=== PATIENT | female | born 1995 | race Caucasian/White ===

== ENCOUNTER 2017-10-24 14:11 | Outpatient (REF) | payer MEDICAID, SELFPAY ==
[2017-10-24 22:45] LABS: Abs Immature Grans 0.01 k/cumm (0.0-0.09); Absolute Basophil Count 0.01 k/cumm (0.0-0.2); Absolute Eosinophil Count 0.11 k/cumm (0.0-0.7); Absolute Lymphocyte Count 1.93 k/cumm (1.2-3.4); Absolute Monocyte Count 0.72 k/cumm (0.11-0.7); Absolute Neutrophil Count 3.45 k/cumm (1.2-6.7); Basophils % 0.2; Eosinophils % 1.8; HCT 36.9 % (36.0-46.0); HGB 12.5 g/dL (12.0-15.5); Immature Grans % 0.2; Mean Corp. HGB Concentration 33.9 g/dL (32.0-36.0); Mean Corpuscular Hemoglobin 31.3 pg (27.0-33.0); Mean Corpuscular Volume 92.5 fL (80-95); Mean Platelet Volume 11.5 fL (8.0-11.0); Monocytes % 11.6; Neutrophils % 55.2; Platelet Count 289 x1000/uL (130-400); RBC 3.99 m/cumm (4.00-5.20); RBC Distribution Width 12.5 % (11.7-14.6); White Blood Cell Count 6.23 k/cumm (4.4-10.8)
[2017-10-24 23:11] LABS: ALT 24 U/L (12-78); AST 16 U/L (15-37); Albumin 3.9 g/dL (3.4-5.0); Alkaline Phosphatase 58 U/L (46-116); Bilirubin, Total 0.4 mg/dL (0.2-1.0); TSH 0.64 uIU/mL (0.358-3.74); Total Protein 6.8 g/dL (6.4-8.2)
[2017-10-26 13:22] LABS: Chlamydia Result Negative; GC Result Negative; Specimen Description URINE
[2017-10-26 22:08] LABS: C.trach, Misc, Amplified RNA Negative (Negative); N.gonorr, Misc, Amplified RNA Negative (Negative); SOURCE: THROAT
== END 2017-10-24 14:31 ==
LOC: NCHCN 14:11
PROVIDERS: PCP Internal Medicine; Visit Provider Registered Nurse
DX: E03.9 Hypothyroidism, unspecified (principal); F41.8 Other specified anxiety disorders; Z11.3 Encounter for screening for infections with a predominantly sexual mode of transmission
CPT/HCPCS: 80076; 87491; 87591; 84443; 85025

== ENCOUNTER 2018-01-08 12:08 | Outpatient (REF) | payer MEDICAID, SELFPAY ==
[2018-01-10 09:42] LABS: Hepatitis C Ab w Rflx HCV PCR Negative (NEGAT)
[2018-01-10 10:36] LABS: HBs Antibody, Quant <3.1 mIU/mL; Hepatitis B Surface Ab Negative
[2018-01-10 10:56] LABS: HIV-1/2 Ag & Ab Screen Negative (NEGAT)
[2018-01-10 12:39] LABS: Syphilis Serology (RPR) Negative (Negative)
[2018-01-10 14:57] LABS: Chlamydia Result Negative; GC Result Negative; Specimen Description URINE
[2018-01-10 21:08] LABS: C.trach, Misc, Amplified RNA Negative (Negative); N.gonorr, Misc, Amplified RNA Negative (Negative); SOURCE: THROAT
== END 2018-01-08 12:28 ==
LOC: NCHCN 12:08
PROVIDERS: PCP Internal Medicine; Visit Provider Registered Nurse
DX: Z11.3 Encounter for screening for infections with a predominantly sexual mode of transmission (principal); Z11.59 Encounter for screening for other viral diseases; Z11.4 Encounter for screening for human immunodeficiency virus [HIV]; Z30.431 Encounter for routine checking of intrauterine contraceptive device
CPT/HCPCS: 86706; 86803; 87389; 87491; 87591; 86592

== ENCOUNTER 2018-04-04 12:15 | Outpatient (REF) | payer MEDICAID, SELFPAY ==
[2018-04-06 10:36] LABS: Syphilis Serology (RPR) Negative (Negative)
[2018-04-06 10:56] LABS: HIV-1/2 Ag & Ab Screen Negative (NEGAT)
[2018-04-06 10:57] LABS: Hepatitis C Ab w Rflx HCV PCR Negative (NEGAT)
[2018-04-06 14:04] LABS: Chlamydia Result Negative; GC Result Negative; Specimen Description URINE
[2018-04-07 00:15] LABS: C.trach, Misc, Amplified RNA Negative (Negative); N.gonorr, Misc, Amplified RNA Negative (Negative); SOURCE: THROAT
== END 2018-04-04 12:35 ==
LOC: NCHCN 12:15
PROVIDERS: PCP Internal Medicine; Visit Provider Registered Nurse
DX: Z11.3 Encounter for screening for infections with a predominantly sexual mode of transmission (principal); Z11.4 Encounter for screening for human immunodeficiency virus [HIV]; Z11.59 Encounter for screening for other viral diseases
CPT/HCPCS: 86803; 87389; 87491; 87591; 86592

== ENCOUNTER 2018-05-04 09:53 | Outpatient (REF) | payer MEDICAID, SELFPAY ==
[2018-05-07 09:30] LABS: Hepatitis C Ab w Rflx HCV PCR Negative (NEGAT)
[2018-05-07 09:33] LABS: HIV-1/2 Ag & Ab Screen Negative (NEGAT)
[2018-05-07 12:24] LABS: Syphilis Serology (RPR) Negative (Negative)
[2018-05-07 14:25] LABS: Chlamydia Result Negative; GC Result Negative; Specimen Description URINE
== END 2018-05-04 10:13 ==
LOC: NCHCN 09:53
PROVIDERS: PCP Internal Medicine; Visit Provider Registered Nurse
DX: Z11.3 Encounter for screening for infections with a predominantly sexual mode of transmission (principal); Z11.4 Encounter for screening for human immunodeficiency virus [HIV]; Z11.59 Encounter for screening for other viral diseases
CPT/HCPCS: 86803; 87389; 87491; 87591; 86592

== ENCOUNTER 2018-12-25 22:51 | Outpatient (REF) | payer OTHER, SELFPAY ==
[2018-12-25 23:32] LABS: TSH 2.78 uIU/mL (0.36-3.74)
[2018-12-27 10:16] LABS: Syphilis Serology (RPR) Negative (Negative)
[2018-12-27 11:23] LABS: HIV-1/2 Ag & Ab Screen Negative (NEGAT)
[2018-12-27 11:30] LABS: Hepatitis C Ab w Rflx HCV PCR Negative (NEGAT)
[2018-12-27 15:28] LABS: Chlamydia Result Negative; GC Result Negative
[2018-12-27 21:59] LABS: C.trach, Misc, Amplified RNA Negative (Negative)
== END 2018-12-25 23:11 ==
LOC: NCHCN 22:51
PROVIDERS: PCP Internal Medicine; Visit Provider Nurse Practitioner Family
DX: E03.9 Hypothyroidism, unspecified (principal); Z11.3 Encounter for screening for infections with a predominantly sexual mode of transmission; Z11.4 Encounter for screening for human immunodeficiency virus [HIV]; Z11.59 Encounter for screening for other viral diseases
CPT/HCPCS: 86803; 87389; 87491; 87591; 84443; 86592

== ENCOUNTER 2019-04-02 12:23 | Outpatient (REF) | payer OTHER, SELFPAY ==
--- NOTE | 2019-04-02 10:30 | PAPFT_PTH ---
PATIENT: Shonna Hector LOC: [facility] U#:[id number] AGE/SX: 23/F ROOM: RE04/02/[address]: Danyell Cheema : 1995 BED: DIS: 04/02/2019 SPEC #: [id number] RECD: 04/03/19 12:52 STATUS: ESE REQ #: [id number] RUSLAN: 04/02/19 10:[address]: Danyell Cheema DEPT: [facility] Cytology RECD BY: Marj Vidal ENTERED: 04/03/19 12:53 SP TYPE: PAPFT OTHR DR: Jeff Burroughs Tissues: 1 - CX/ENDOCX FOR PAP SMEARS Procedures: PAP THIN PREP/[facility] Screening Comments: [id number] (CHLAMYDIA/GC)
[2019-04-04 16:41] LABS: Chlamydia Result Negative (Negative); GC Result Negative (Negative)
== END 2019-04-02 12:43 ==
LOC: NCHCN 12:23
PROVIDERS: PCP Internal Medicine; Visit Provider Registered Nurse
DX: Z12.4 Encounter for screening for malignant neoplasm of cervix (principal)
CPT/HCPCS: 87491; 87591; 88142

== ENCOUNTER 2019-09-20 20:19 | Outpatient (REF) | payer OTHER, SELFPAY ==
[2019-09-20 20:45] LABS: HCT 37.9 % (36.0-46.0); HGB 12.7 g/dL (11.2-15.7); MCHC 33.5 % (32.0-36.0); MCV 89.6 fL (80-95); MPV 11.2 fL (8.0-11.0); Platelet Count 305 10^3/uL (130-400); RBC 4.23 10^6/uL (3.93-5.22); RDW 12.2 % (11.7-14.6); RDW-SD 39.6 fL; WBC 6.03 10^3/uL (4.4-10.8)
[2019-09-20 21:41] LABS: ALT 24 U/L (14-59); AST 19 U/L (15-37); Albumin 3.9 g/dL (3.4-5.0); Alkaline Phosphatase 47 U/L (46-116); BUN 11 mg/dL (7-18); Bilirubin, Total 0.8 mg/dL (0.2-1.0); Calcium 8.6 mg/dL (8.5-10.1); Chloride 102 mmol/L (98-107); Glucose 81 mg/dL (74-106); Sodium 138 mmol/L (136-145); Total Protein 6.8 g/dL (6.4-8.2)
[2019-09-23 13:35] LABS: Chlamydia Result Negative (Negative); GC Result Negative (Negative)
[2019-09-25 01:26] LABS: C.trach, Misc, Amplified RNA Negative (Negative); N.gonorr, Misc, Amplified RNA Negative (Negative); SOURCE: THROAT
== END 2019-09-20 20:39 ==
LOC: NCHCN 20:19
PROVIDERS: PCP Internal Medicine; Visit Provider Registered Nurse
DX: F39 Unspecified mood [affective] disorder (principal); Z11.3 Encounter for screening for infections with a predominantly sexual mode of transmission
CPT/HCPCS: 80053; 85027; 87491; 87591

== ENCOUNTER 2019-10-04 15:09 | Outpatient (REF) | payer OTHER, SELFPAY ==
[2019-10-07 10:28] LABS: HIV-1/2 Ag & Ab Screen Negative (Negative)
[2019-10-07 12:29] LABS: Syphilis Serology (RPR) Negative (Negative)
== END 2019-10-04 15:29 ==
LOC: NCHCN 15:09
PROVIDERS: PCP Registered Nurse; Visit Provider Registered Nurse
DX: Z11.3 Encounter for screening for infections with a predominantly sexual mode of transmission (principal); Z11.4 Encounter for screening for human immunodeficiency virus [HIV]
CPT/HCPCS: 87389; 86592

== ENCOUNTER 2019-12-11 22:46 | Outpatient (REF) | payer OTHER, SELFPAY ==
[2019-12-14 23:57] LABS: Patient Race White; SARS-CoV-2 RNA Undetected (Undetected); SARS-CoV-2 Specimen Source Nasal
== END 2019-12-11 23:06 ==
LOC: NCHCN 22:46
PROVIDERS: PCP Registered Nurse; Visit Provider Registered Nurse
DX: R50.9 Fever, unspecified (principal)
CPT/HCPCS: U0003

== ENCOUNTER 2020-01-24 19:49 | Outpatient (REF) | payer OTHER, SELFPAY ==
[2020-01-24 20:35] LABS: Abs Immature Grans 0.01 10^3/uL (0.0-0.06); HCT 39.6 % (36.0-46.0); HGB 13.1 g/dL (11.2-15.7); MCH 30.3 pg (27.0-33.0); MCHC 33.1 % (32.0-36.0); MCV 91.7 fL (80-95); MPV 11.1 fL (8.0-11.0); Nucleated RBC 0 %; Platelet Count 193 10^3/uL (130-400); RBC 4.32 10^6/uL (3.93-5.22); RDW 11.9 % (11.7-14.6); WBC 5.08 10^3/uL (4.4-10.8)
[2020-01-24 20:57] LABS: ALT 31 U/L (14-59); AST 26 U/L (15-37); Albumin 3.6 g/dL (3.4-5.0); Alkaline Phosphatase 56 U/L (46-116); Anion Gap 6.3 mmol/L (3-11); BUN 5 mg/dL (7-18); Bilirubin, Total 0.4 mg/dL (0.2-1.0); CO2 27.7 mmol/L (21.0-32.0); CREATININE 0.68 mg/dL (0.55-1.02); Calcium 8.3 mg/dL (8.5-10.1); Chloride 104 mmol/L (98-107); Glucose 89 mg/dL (74-106); Potassium 3.5 mmol/L (3.5-5.1); Sodium 138 mmol/L (136-145); TSH 1.02 uIU/mL (0.36-3.74); Total Protein 6.7 g/dL (6.4-8.2)
[2020-01-24 21:11] LABS: Absolute Lymphocyte Count 1.47 10^3/uL (1.2-3.4); Absolute Monocyte Count 0.51 10^3/uL (0.1-0.8); Atypical Lymphocytes % 5; Diff Comment Manual Differential
== END 2020-01-24 20:09 ==
LOC: NCHCN 19:49
PROVIDERS: PCP Registered Nurse; Visit Provider Internal Medicine
DX: E03.9 Hypothyroidism, unspecified (principal); R19.7 Diarrhea, unspecified
CPT/HCPCS: 80053; 87505; 84443; 85025; 87177

== ENCOUNTER 2020-07-24 15:14 | Outpatient (REF) | payer OTHER, SELFPAY ==
[2020-07-27 10:14] LABS: HIV-1/2 Ag & Ab Screen Negative (Negative)
[2020-07-27 10:33] LABS: Parathyroid Hormone,Intact 41 pg/mL (19-88)
[2020-07-27 14:58] LABS: Chlamydia Result Negative (Negative); GC Result Negative (Negative)
== END 2020-07-24 15:15 | disposition home or self-care (01) ==
LOC: NCHCN 15:14
PROVIDERS: PCP Registered Nurse; Visit Provider Registered Nurse
DX: E83.51 Hypocalcemia (principal); Z11.3 Encounter for screening for infections with a predominantly sexual mode of transmission; Z11.4 Encounter for screening for human immunodeficiency virus [HIV]
CPT/HCPCS: 87389; 87491; 87591; 82310; 83970

== ENCOUNTER 2021-05-19 17:14 | Outpatient (REF) | payer SELFPAY ==
[2021-05-19 21:50] LABS: HCT 40.7 % (36.0-46.0); HGB 13.3 g/dL (11.2-15.7); MCH 29.9 pg (27.0-33.0); MCHC 32.7 % (32.0-36.0); MCV 91.5 fL (80-95); MPV 10.8 fL (8.0-11.0); Platelet Count 374 10^3/uL (130-400); RBC 4.45 10^6/uL (3.93-5.22); RDW 11.9 % (11.7-14.6); RDW-SD 39.8 fL; WBC 6.39 10^3/uL (4.4-10.8)
[2021-05-19 22:12] LABS: ALT 23 U/L (14-59); AST 15 U/L (15-37); Alkaline Phosphatase 59 U/L (46-116); Anion Gap 6.8 mmol/L (3-11); BUN 16 mg/dL (7-18); Bilirubin, Total 0.5 mg/dL (0.2-1.0); CO2 29.2 mmol/L (21.0-32.0); CREATININE 0.8 mg/dL (0.55-1.02); Calcium 8.8 mg/dL (8.5-10.1); Chloride 104 mmol/L (98-107); Glucose 80 mg/dL (74-106); Potassium 3.8 mmol/L (3.5-5.1); Sodium 140 mmol/L (136-145); TSH 0.93 uIU/mL (0.36-3.74); Total Protein 7.1 g/dL (6.4-8.2)
== END 2021-05-19 17:15 | disposition home or self-care (01) ==
LOC: NCHCN 17:14
PROVIDERS: PCP Registered Nurse; Visit Provider Registered Nurse
DX: R53.83 Other fatigue (principal)
CPT/HCPCS: 80053; 85027; 84443

== ENCOUNTER 2021-09-09 10:33 | Outpatient (REF) | payer MEDICAID, SELFPAY ==
[2021-09-09 14:51] LABS: Abs Immature Grans 0.01 10^3/uL (0.0-0.06); Absolute Basophil Count 0.02 10^3/uL (0.0-0.2); Absolute Eosinophil Count 0.23 10^3/uL (0.0-0.7); Absolute Lymphocyte Count 2.08 10^3/uL (1.2-3.4); Absolute Monocyte Count 0.94 10^3/uL (0.1-0.8); Absolute Neutrophil Count 3.39 10^3/uL (1.2-6.7); Basophils % 0.3; Eosinophils % 3.4; HCT 38.9 % (36.0-46.0); HGB 12.9 g/dL (11.2-15.7); Immature Grans % 0.1; Lymphocytes % 31.2; MCHC 33.2 % (32.0-36.0); MCV 91 fL (80-95); Monocytes % 14.1; Neutrophils % 50.9; Platelet Count 296 10^3/uL (130-400); RDW 11.9 % (11.7-14.6); RDW-SD 39.2 fL; WBC 6.67 10^3/uL (4.4-10.8)
[2021-09-09 15:10] LABS: TSH 2.07 uIU/mL (0.36-3.74)
== END 2021-09-09 10:34 | disposition home or self-care (01) ==
LOC: NCHCN 10:33
PROVIDERS: PCP Registered Nurse; Visit Provider Registered Nurse
DX: R53.83 Other fatigue (principal)
CPT/HCPCS: 84443; 85025

== ENCOUNTER 2021-09-16 13:03 | Outpatient (REF) | payer MEDICAID, SELFPAY ==
[2021-09-17 13:46] LABS: COVID-19 RT-PCR UVMMC Result Negative (Negative)
== END 2021-09-16 13:04 | disposition home or self-care (01) ==
LOC: NCHCN 13:03
PROVIDERS: PCP Registered Nurse; Visit Provider Registered Nurse
DX: Z20.822 Contact with and (suspected) exposure to COVID-19 (principal); J06.9 Acute upper respiratory infection, unspecified
CPT/HCPCS: U0003

== ENCOUNTER 2021-10-28 16:26 | Outpatient (REF) | payer MEDICAID, SELFPAY ==
[2021-10-28 21:51] LABS: Vitamin B12 399 pg/mL (193-986)
[2021-10-28 23:34] LABS: Vitamin D 25 Total 21.5 ng/mL (30-100)
== END 2021-10-28 16:27 | disposition home or self-care (01) ==
LOC: NCHCN 16:26
PROVIDERS: PCP Registered Nurse; Visit Provider Registered Nurse
DX: R53.83 Other fatigue (principal); F41.8 Other specified anxiety disorders; F39 Unspecified mood [affective] disorder
CPT/HCPCS: 82306; 82607

== ENCOUNTER 2022-02-08 17:46 | Outpatient (REF) | payer MEDICAID, SELFPAY ==
--- NOTE | 2022-02-08 17:00 | PAPFT_PTH ---
PATIENT: Shonna Hector LOC: [facility]#:[id number] AGE/SX: 26/F ROOM: RE02/08/[address]: Karen Dow : 1995 BED: DIS: 02/08/2022 SPEC #: [id number] RECD: 02/09/22 13:01 STATUS: ESE REXena #: [id number] RUSLAN: 02/08/22 17:[address]: Karen Dow DEPT: [facility] Cytology RECD BY: Marj Vidal ENTERED: 02/09/22 13:02 SP TYPE: PAPFT OTHR DR: Danyell Cheema Tissues: 1 - CX/ENDOCX FOR PAP SMEARS Procedures: PAP THIN PREP/[facility] Screening Comments: [id number] (CHLAMYDIA/GC)
[2022-02-10 15:05] LABS: Chlamydia Result Negative (Negative); GC Result Negative (Negative)
== END 2022-02-08 17:47 | disposition home or self-care (01) ==
LOC: NCHCN 17:46
PROVIDERS: PCP Registered Nurse; Visit Provider Family Medicine
DX: N89.8 Other specified noninflammatory disorders of vagina (principal); Z11.3 Encounter for screening for infections with a predominantly sexual mode of transmission; Z12.4 Encounter for screening for malignant neoplasm of cervix
CPT/HCPCS: 87491; 87591; 88142; 87480; 87510; 87660

== ENCOUNTER 2022-12-30 17:52 | Outpatient (REF) | payer BC, SELFPAY ==
[2022-12-30 15:40] LABS: TSH 2.71 uIU/mL (0.36-3.74)
--- OUTSIDE RECORDS SUMMARY | 2022-12-30 17:54 | XMS_ITS | CCD ---
Author Name Unknown Address [address] [place] [address] [phone] Organization Unknown Address [address] [place] [address] [phone] Care Team Providers Care Dietitian Research Name Role Phone LOC STEEN Attending Physician [phone] Vital Signs Unknown or Not Available. Allergies Allergy Code Allergy Type Reaction Status LACTOSE 6211 Food allergy ABDOMINAL PAIN Active Procedures Unknown or Not Available. History of Immunizations Unknown or Not Available. Problems Unknown or Not Available. Results Unknown or Not Available. Active Medications Medication Code Dose Units Frequency Route Modificatio n Start Date/Time Citalopram Hydrobromide 20MG Oral Tablet 415285 40 MILLIGRAMS DAILY ORAL 20:25 Prescription Detail TAKE 40 MILLIGRAMS ORAL DAILY Levothyroxine Sodium 88MCG Oral Tablet 875926 88 MICROGRAM DAILY ORAL 09/10/19 19 20:25 Prescription Detail TAKE 88 MICROGRAM ORAL DAILY ProAir HFA 0.09MG/1Actuat ion Inhalation Suspension 977238 1 PUFF NEEDED INHALATION 09/10/19 20:25 Prescription Detail 1 PUFF INHALATION NEEDED Medications Administered During Visit Unknown or Not Available. Encounters Encounter Diagnosis Diagnosis Code Start Date Follow-up consultation [id number] Social History Smoking Status Code Start Date End Date Never smoker [id number] Patient Decision Aids Unknown or Not Available. Discharge Instructions You were admitted to [facility] on 03/31/2022 14:47 with a principal diagnosis of Person consulting for explanation of examination or test findings You were discharged from [facility] on 03/31/2022 14:47 Should you have any questions prior to discharge, please contact a member of your healthcare team. If you have left the hospital and have any questions, please contact your primary care physician. Chief Complaint and Reason For Visit Unknown or Not Available. Function Status Unknown or Not Available. Plan of Care Unknown or Not Available. Referral/Transition of Care Unknown or Not Available.
--- OUTSIDE RECORDS SUMMARY | 2022-12-30 17:54 | XMS_ITS | CCD ---
Author Name Unknown Address [address] [place] [address] [phone] Organization Unknown Address [address] [place] [address] [phone] Care Team Providers Care Pig Breeder Name Role Phone ALOK MCCALLUM Attending Physician [phone] ALOK MCCALLUM Rounding (Secondary) P hysician [phone] Vital Signs Unknown or Not Available. Allergies Allergy Code Allergy Type Reaction Status LACTOSE 6211 Food allergy ABDOMINAL PAIN Active Procedures Unknown or Not Available. History of Immunizations Unknown or Not Available. Problems Unknown or Not Available. Results Unknown or Not Available. Active Medications Medication Code Dose Units Frequency Route Modificatio n Start Date/Time Citalopram Hydrobromide 20MG Oral Tablet 479816 40 MILLIGRAMS DAILY ORAL 9 20:25 Prescription Detail TAKE 40 MILLIGRAMS ORAL DAILY Levothyroxine Sodium 88MCG Oral Tablet 237122 88 MICROGRAM DAILY ORAL 09/10/19 19 20:25 Prescription Detail TAKE 88 MICROGRAM ORAL DAILY ProAir HFA 0.09MG/1Actuat ion Inhalation Suspension 974936 1 PUFF NEEDED INHALATION 09/10/19 19 20:25 Prescription Detail 1 PUFF INHALATION NEEDED Medications Administered During Visit Unknown or Not Available. Encounters Encounter Diagnosis Diagnosis Code Start Date Obstructive sleep apnea (adult) (pediatric) G473 3 01/14/2022 Social History Smoking Status Code Start Date End Date Never smoker [id number] Patient Decision Aids Unknown or Not Available. Discharge Instructions You were admitted to [facility] on 01/14/2022 20:30 with a principal diagnosis of Obstructive sleep apnea (adult) (pediatric) You were discharged from [facility] on 01/15/2022 06:12 Should you have any questions prior to [...]
--- OUTSIDE RECORDS SUMMARY | 2022-12-30 17:54 | XMS_ITS | Continuity of Care Document ---
Author Name Unknown Organization [facility] Address [address] [place] [address] Care Team Providers Care Vulnerability Researcher Name Role Phone Karen Dow Primary Care Physician Encounter [facility] Date(s): 02/23/22 - 04/28/22 [facility] [address] [place] [address] Encounter Diagnosis Pain in thoracic spine(Final) - Other low back pain(Final) - Discharge Disposition: Home or Self Care Attending Physician: Karen Dow MD Referring Physician: Karen Dow MD Assessment and Plan Future Appointments Social History Social History Type Response Sex Female Physical therapy Progress note * Francoise Rodriguez: PERFORM, MODIFY, MODIFY, MODIFY, MODIFY, MODIFY, MODIFY, MODIFY, MODIFY, MODIFY, MODIFY, MODIFY, MODIFY, MODIFY, MODIFY Event Display: Physical Therapy Progress Note Authored Date: [id number] *Visit Type:?Discharge summary *Referring??Diagnosis: M54.9 Back Pain *Therapy Diagnosis: Back pain and muscle weakness *Subjective: Patient reports no pain in her back over the last 10 days, improved back mobility and is not wakingup with pain after work. Patient reports that she is more conscious of her back position and is maintaining her back in a more straight alignment more frequently. Patient is able to now sit in a firmchair for more than 30 minutes and able to sit in a cushioned chair for as long as she wants. Patient notices when her body mechanics are improved and she is focused on her form that she does not have issues with carrying and lifting related tasks. 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 ??Patient Case History: Patient presents with low back pain that was injured most recently 2 months ago with occasional flare ups. Patient reports history of low back pain years ago, however in December of 2021 she was unable to walk and stand up straight for 4 days with symptoms of tingling going up her spine and swelling that was warm to touch along her spine. Patient reports fear of making her symptoms worse and unsure if she is going to cause another flare up. Increased stiffness is present in the morning. 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 Patient is able to lift up to 50lbs with most difficulty lifting from floor to waist and is unable to lift any weight when she is flared up. Pain: ?0/10 Lumbar Spine Mobility: Normal joint mobility of all lumbar spinal segments into extension, flexion and rotation. Mild muscle tension bilaterally throughout lower thoracic paraspinals. Lumbar Spine AROM Screen: ROM: Hip PROM: 105 degrees of hip flexion Hip flexor flexibility: 10 degrees bilaterally, tightness of right hip Inclinometer Tape Measure Flexion ??4 inches from floor Extension ??40 degrees, pinch Inclinometer Tape Measure Right Left Right Left Rotation ??Normal ??Normal Side Bending ??2 inches past knee ??2 inches past knee Core/Abdominal Strength: 5/5 Lumbar Spine Special Tests: Test Right Left 90-90 Test Degrees Degrees Femoral Nerve Traction Test Lasegue???s Test Pelvic Shear Test Slump Test ??Negative ??Negative Straight Leg Raise Degrees 78 Degrees 76 Jose Test Trendelenberg Test Myotomes: Hip flexion: 5/5 Knee extension/flexion: 5/5 Hip abduction/adduction: 5/5 *Patient Education: Patient educated on objective measurements and improvements made in therapy, and final HEP to continue with the progression. *Physical Therapy Assessment: Patient has participated in skilled physical therapy services with a focus on progressive strengthening of the core and LE with various lifting techniques and functional lumbar and hip mobility. Patient demonstrates improved lumbar flexion and rotation mobility, full SLR for with no remaining nervetension, increased core engagement, no back or hip pain and improved body mechanics for all lifting from floor to waist, carrying and lifting at waist height. 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 Patient has met all goals for physical therapy and presents with no more back pain over the last 10 days. Patient is discharged from physical therapy at this time. *Rehab Potential: Excellent?to reach the established goals *Functional Outcome Measure: FOM: Modified Oswestry Disability Index ? Score: 4% ? Comments: Minimal disability *Short Term Goals: 1. Patient will achieve hip flexion/core strength increase to 5/5 MMT by 03/15/2022 to be able to sit without pain for 1-2 hours. MET *Skilled Nursing Goals: ??1. Patient will be independent with final HEP to continue with progression for return to ADL's by03/29/2022. MET 2. Patient will perform floor to waist lift with correct posture with no lumbar flexion >50 lbs and no increase in chief complaint by 03/29/2022. MET 3. Patient will perform carry and walk with 30lbs for 20 feet distance with no increase in pain more than 2/10 VAS by 03/29/2022. MET 4. Patient will demonstrate SLR >70 degrees bilaterally as demonstrated by reduced lumbar nerve tension to improve ability to lift leg to don pants by 03/29/2022. MET *Patient Goals: -??To be able to lift, carry, grab 50lbs without fear of increased chief complaint. To get out of bed and chair without increased stiffness. To be able to sit for more than 30 minutes without the need to move out of the position. MET - To shovel snow without an increase in back pain MET *Discharge Plan:??Discharge patient from skilled physical. *Procedure Documentation: CPT 73488: Manual Therapy:?27? minutes Manual therapy to decrease tissue tension, decrease pain, decrease edema, promote healthy joint mobility and improve range of motion for functional ADL???s such as: Turning in bed, lifting animal feed, standing from chair, lifting from the floor Treatment techniques utilized today included: -Joint mobilization grade ll-lll along lumbar spine medial and lateral -Myofascial release along hamstrings, ITB and lateral hip musculature CPT 83520: Therapeutic Exercise:?15? minutes Therapeutic exercise to promote improved joint stability, strength, endurance, and range of motion for functional ADL???s such as: lifting cow feed from the ground, lifting groceries, reaching to move feed into the animal stalls, picking items off the ground Specific education/training provided: Treatment techniques utilized today included: -LTR x20 -Hip ER LTR x20 -Sciatic nerve slider supine x20 each HEP: -Hip hinging standing holding onto table 2x10 with dowel -Floor to waist lift with stool and with no weight 2x10 (cues for hip hinging, neutral spine and glut engagement) -SKTC bilaterally with small SB on table supine 1x10 bilaterally -LTR -Sit to stand (rtb) with ER resistance -Sciatic nerve slider (knee extension in supine) *Total Time: 42 minutes *Time In: 1:18 PM *Time Out: 2:00 PM Electronically Signed on 04/29/22 07:07 AM Francoise Rodriguez Reviewed by: Zena Redman * Francoise Rodriguez: PERFORM, MODIFY, MODIFY, MODIFY Event Display: Physical Therapy Progress Note Authored Date: *Visit Type:?Daily visit *Referring??Diagnosis: M54.9 Back Pain *Therapy Diagnosis: Back pain and muscle weakness *Subjective: Patient reports no pain in her back all week except some discomfort getting out of her truck right before therapy and inability to lunge to grab buckets out of her sink at home to properly lift it without her back arching. ??Patient Case History: Patient presents with low back pain that was injured most recently 2 months ago with occasional flare ups. Patient reports history of low back pain years ago, however in December of 2021 she was unable to walk and stand up straight for 4 days with symptoms of tingling going up her spine and swelling that was warm to touch along her spine. Patient reports fear of making her symptoms worse and unsure if she is going to cause another flare up. Increased stiffness is present in the morning. 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 Patient is able to lift up to 50lbs with most difficulty lifting from floor to waist and is unable to lift any weight when she is flared up. Pain: ?03/01 *Patient Education: Patient educated to continue to practice lumbar stretches, proper lifting form and maintaining current improvements. *Physical Therapy Assessment: Patient demonstrates good tolerance of moderate resistance lifting floor to waist height, with no increase in low back pain, however continues to demonstrate the need for cues and visual demonstration to correct spinal alignment. Progressed lifting techniques to simulate shoveling with use of long lever arm with 5lbs of weight on the end and cues to pivoting on her back leg. Patient improved spinal alignment after cue to maintain her visual gaze forward ahead of her without looking towards the ground. Improved lumbar spinal mobility palpated this session, however increased restrictions were noted along the lower thoracic spine that were improved post treatment with no remaining pain. Patient would continue to benefit from skilled physical therapy services to address remaining functional limitations as mentioned above to improve return to PLOF. *Short Term Goals: 1. Patient will achieve hip flexion/core strength increase to 5/5 MMT by 03/15/2022 to be able to sit without pain for 1-2 hours. MET *Skilled Nursing Goals: ??1. Patient will be independent with final HEP to continue with progression for return to ADL's by03/29/2022. MET 2. Patient will perform floor to waist lift with correct posture with no lumbar flexion >50 lbs and no increase in chief complaint by 03/29/2022. MET 3. Patient will perform carry and walk with 30lbs for 20 feet distance with no increase in pain more than 2/10 VAS by 03/29/2022. MET 4. Patient will demonstrate SLR >70 degrees bilaterally as demonstrated by reduced lumbar nerve tension to improve ability to lift leg to don pants by 03/29/2022. PROGRESSING *Patient Goals: -??To be able to lift, carry, grab 50lbs without fear of increased chief complaint. To get out of bed and chair without increased stiffness. To be able to sit for more than 30 minutes without the need to move out of the position. MET - To shovel snow without an increase in back pain PROGRESSING *Plan:??Manual techniques to address remaining hypomobility and muscle tension and update final HEP. *Procedure Documentation: CPT 34580: Manual Therapy:?15? minutes Manual therapy to decrease tissue tension, decrease pain, decrease edema, promote healthy joint mobility and improve range of motion for functional ADL???s such as: Turning in bed, lifting animal feed, standing from chair, lifting from the floor Treatment techniques utilized today included: -Joint mobilization grade ll-lll along bilateral pelvis into hip rotation with side bent position, thoracic vertebral medial glide T9-T12 -Myofascial release along bilateral lumbar/thoracic paraspinal musculature at T9-T12 CPT 26387: Therapeutic Activities - Direct 1:1 :?20? minutes Therapeutic activities to improve functional performance of ADL specific activities such as: lifting cow feed from the ground, lifting groceries, reaching to move feed into the animal stalls, pickingitems off the ground Treatment techniques utilized today included: -Floor to waist lift (handle height) 5 lbs x10 to simulate shoveling (long level arm with use of ankle weight and cane) -Deadlift blk tb and 18lbs KB 2x10 each -Waist height lateral transfer, no weight, pivot technique and grabbing from a lower height New HEP: -Hip hinging standing holding onto table 2x10 with dowel -Floor to waist lift with stool and with no weight 2x10 (cues for hip hinging, neutral spine and glut engagement) -SKTC bilaterally with small SB on table supine 1x10 bilaterally -LTR -Sit to stand (rtb) with ER resistance *Total Time: 35 minutes *Time In: 10:10 AM *Time Out: 10:45 AM Electronically Signed on 04/26/22 11:12 AM Francoise Rodriguez * Francoise Rodriguez: PERFORM, MODIFY, MODIFY, MODIFY, MODIFY, MODIFY, MODIFY, MODIFY, MODIFY, MODIFY, MODIFY, MODIFY, MODIFY, MODIFY, MODIFY, MODIFY, MODIFY, MODIFY, MODIFY, MODIFY, MODIFY, MODIFY, MODIFY Event Display: Physical Therapy Progress Note Authored Date: [id number] *Visit Type:?Progress note (Visit count: 13) *Referring??Diagnosis: M54.9 Back Pain *Therapy Diagnosis: Back pain and muscle weakness *Subjective: Patient reports less tightening sensation in the left hip. 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 Patient has been more consistent with her HEP and has noticed just stiffness. Patient reports that she has noticed improved mobility and reduced pain and is not waking up with pain after work. Patient reportsthat she is more conscious of her back position and is maintaining her back in a more straight alignment more frequently. Patient is able to now sit in a firm chair for more than 30 minutes and has less issues with carrying and lifting related tasks. Patient reports no current back pain at all and overall she has experienced significant improvements with addition of lifting techniques with the only issue being lifting waist to head height and fear of shoveling. ??Patient Case History: Patient presents with low back pain that was injured most recently 2 months ago with occasional flare ups. Patient reports history of low back pain years ago, however in December of 2021 she was unable to walk and stand up straight for 4 days with symptoms of tingling going up her spine and swelling that was warm to touch along her spine. Patient reports fear of making her symptoms worse and unsure if she is going to cause another flare up. Increased stiffness is present in the morning. 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 Patient is able to lift up to 50lbs with most difficulty lifting from floor to waist and is unable to lift any weight when she is flared up. Pain: Location: ??Low back central of spine (and off towards the left) Nature: ??Intermittent Behavior: ??Pressure, aching (sometimes sharp) Severity: ??0/10-2/10 Lumbar Spine Mobility: Normal joint mobility of all lumbar spinal segments into extension, flexion and rotation. Mild muscle tension bilaterally throughout lower thoracic paraspinals. Lumbar Spine AROM Screen: ROM: Hip PROM: 105 degrees of hip flexion Hip flexor flexibility: 10 degrees bilaterally, tightness of right hip Inclinometer Tape Measure Flexion ??4 inches from floor Extension ??40 degrees, pinch Inclinometer Tape Measure Right Left Right Left Rotation ??Normal ??Normal Side Bending ??2 inches past knee ??2 inches past knee Core/Abdominal Strength: 5/5 Lumbar Spine Special Tests: Test Right Left 90-90 Test Degrees Degrees Femoral Nerve Traction Test Lasegue???s Test Pelvic Shear Test Slump Test ??Negative ??Negative Straight Leg Raise Degrees 65 Degrees 64 Jose Test Trendelenberg Test Myotomes: Hip flexion: 5/5 Knee extension/flexion: 5/5 Hip abduction/adduction: 5/5 *Patient Education: Patient educated on objective measurements and improvements made in therapy, remaining deficits andupdated HEP. *Physical Therapy Assessment: Patient has participated in skilled physical therapy services over the past 13 visits with a focus on progressive strengthening of the core and LE with various lifting techniques and functional lumbar and hip mobility. Patient demonstrates improved lumbar flexion and rotation mobility, equal and improved SLR for hamstring flexibility, increased core engagement, no back or hip pain and improved body mechanics for all lifting from floor to waist, carrying and lifting at waist height. Patient is able to complete lifting from floor to waist and waist to shoulder height with cues for positioning without increased pain, and no stiffness getting into/out of bed or a chair. Patient continues to be f earful of trying to shovel snow and would benefit from further training in this area. Patient wouldcontinue to benefit from skilled physical therapy services to address remaining functional limitations as mentioned above to improve return to PLOF. *Rehab Potential: Excellent?to reach the established goals *Functional Outcome Measure: FOM: Modified Oswestry Disability Index ? Score: 8% ? Comments: Minimal disability *Short Term Goals: 1. Patient will achieve hip flexion/core strength increase to 5/5 MMT by 03/15/2022 to be able to sit without pain for 1-2 hours. MET *Skilled Nursing Goals: ??1. Patient will be independent with final HEP to continue with progression for return to ADL's by03/29/2022. MET 2. Patient will perform floor to waist lift with correct posture with no lumbar flexion >50 lbs and no increase in chief complaint by 03/29/2022. MET 3. Patient will perform carry and walk with 30lbs for 20 feet distance with no increase in pain more than 2/10 VAS by 03/29/2022. MET 4. Patient will demonstrate SLR >70 degrees bilaterally as demonstrated by reduced lumbar nerve tension to improve ability to lift leg to don pants by 03/29/2022. PROGRESSING *Patient Goals: -??To be able to lift, carry, grab 50lbs without fear of increased chief complaint. To get out of bed and chair without increased stiffness. To be able to sit for more than 30 minutes without the need to move out of the position. MET - To shovel snow without an increase in back pain PROGRESSING *Frequency of Treatment: 2x/week *Intensity of Treatment (minutes):??45 minutes *Duration of Treatment (days/weeks):??2x/week for 1 week *Planned Treatment Interventions: ??X CPT 31781: Therapeutic Exercise CPT 70312: Iontophoresis ??X CPT 20536: Therapeutic Activity CPT 63030: Electrical Stimulation (TENS/probe) ??X CPT 00675: Manual Therapy CPT G0283: Electrical Stimulation (unattended) ??X CPT 92035: Gait Training CPT 05997: Biofeedback ??X CPT 16166: Neuromuscular Re-education CPT 75579: Initial Orthotic Fit/Train ??X CPT 28167: Self-Care/Home Management CPT 53461: Initial Prosthetic Train CPT 64496: Ultrasound *Discharge Plan: Upon achieving goals or maximal benefit of therapy services.? Progress next session with simulated shoveling lifting mechanics. *Procedure Documentation: CPT 36683: Manual Therapy:?15? minutes Manual therapy to decrease tissue tension, decrease pain, decrease edema, promote healthy joint mobility and improve range of motion for functional ADL???s such as: Turning in bed, lifting animal feed, standing from chair, lifting from the floor Treatment techniques utilized today included: -Joint mobilization grade ll-lll along bilateral pelvis into hip rotation with side bent position -Myofascial release along bilateral lumbar/thoracic paraspinal musculature at T10-L2 CPT 59094: Therapeutic Activities - Direct 1:1 :?20? minutes Therapeutic activities to improve functional performance of ADL specific activities such as: lifting cow feed from the ground, lifting groceries, reaching to move feed into the animal stalls, pickingitems off the ground Treatment techniques utilized today included: -Floor to waist lift (handle height) 50lbs x5 -Deadlift 50lbs x3 -Waist to shoulder height lift (8-35lbs) with cues for lunge position and posterior weight shift -Lunge/golfers squat lift (5#) x10 -Sit to stand (rtb) with ER resistance 1x10 New HEP: -Hip hinging standing holding onto table 2x10 with dowel -Floor to waist lift with stool and with no weight 2x10 (cues for hip hinging, neutral spine and glut engagement) -SKTC bilaterally with small SB on table supine 1x10 bilaterally -LTR -Sit to stand (rtb) with ER resistance *Total Time: 35 minutes *Time In: 10:10 AM *Time Out: 10:45 AM Electronically Signed on 04/22/22 11:59 AM Francoise Rodriguez Reviewed by: Zena Redman Patient Care team information Care Team Personnel Name: Karen Dow MD Position: No Access Member Role: Primary Care Physician Care Team Related Persons Name: ERIKA MCKEON Address: Home
--- OUTSIDE RECORDS SUMMARY | 2022-12-30 17:54 | XMS_ITS | CCD ---
Author Name Unknown Address [address] [place] [address] [id number] Organization Unknown Address [address] [place] [address] [id number] Care Team Providers Care Solid Propellant Processor Name Role Phone LOC STEEN Attending Physician [phone] LOC STEEN Rounding (Secondary) Physician [phone] Vital Signs Unknown or Not Available. Allergies Allergy Code Allergy Type Reaction Status LACTOSE 6211 Food allergy ABDOMINAL PAIN Active Procedures Unknown or Not Available. History of Immunizations Unknown or Not Available. Problems Unknown or Not Available. Results Unknown or Not Available. Active Medications Medication Code Dose Units Frequency Route Modificatio n Start Date/Time Citalopram Hydrobromide 20MG Oral Tablet 056397 40 MILLIGRAMS DAILY ORAL 9 20:25 Prescription Detail TAKE 40 MILLIGRAMS ORAL DAILY Levothyroxine Sodium 88MCG Oral Tablet 368447 88 MICROGRAM DAILY ORAL 09/10/19 19 20:25 Prescription Detail TAKE 88 MICROGRAM ORAL DAILY ProAir HFA 0.09MG/1Actuat ion Inhalation Suspension 568951 1 PUFF NEEDED INHALATION 09/10/19 19 20:25 Prescription Detail 1 PUFF INHALATION NEEDED Medications Administered During Visit Unknown or Not Available. Encounters Encounter Diagnosis Diagnosis Code Start Date Snoring [id number] 11/03/2021 Social History Smoking Status Code Start Date End Date Never smoker [id number] Patient Decision Aids Unknown or Not Available. Discharge Instructions You were admitted to [facility] on 11/03/2021 15:21 with a principal diagnosis of Snoring You were discharged from [facility] on 11/03/2021 15:22 Should you have any questions prior to [...]
== END 2022-12-30 17:53 | disposition home or self-care (01) ==
LOC: NCHCN 17:52
PROVIDERS: PCP Registered Nurse; Visit Provider Family Medicine
DX: E03.9 Hypothyroidism, unspecified (principal)
CPT/HCPCS: 84443

== ENCOUNTER 2023-06-28 14:43 | Outpatient (REF) | payer BC, SELFPAY ==
[2023-06-28 15:18] LABS: TSH 1.79 uIU/Ml (0.36-3.74)
== END 2023-06-28 14:44 | disposition home or self-care (01) ==
LOC: NCHCN 14:43
PROVIDERS: PCP Registered Nurse; Visit Provider Family Medicine
DX: E03.9 Hypothyroidism, unspecified (principal)
CPT/HCPCS: 84443

== ENCOUNTER 2023-09-07 14:22 | Outpatient (REF) | payer BC, SELFPAY | END 2023-09-07 14:23 | disposition home or self-care (01) | LOC: NCHCN 14:22 | PROVIDERS: PCP Registered Nurse; Visit Provider Family Medicine | DX: R30.0 Dysuria (principal) | CPT/HCPCS: 87077; 87086; 87186 ==

== ENCOUNTER 2024-01-24 10:50 | Outpatient (REF) | payer BC, SELFPAY ==
[2024-01-24 16:15] LABS: TSH 2.66 uIU/mL (0.36-3.74)
== END 2024-01-24 10:51 | disposition home or self-care (01) ==
LOC: NCHCN 10:50
PROVIDERS: PCP Registered Nurse; Visit Provider Family Medicine
DX: E03.9 Hypothyroidism, unspecified (principal)
CPT/HCPCS: 84443

== ENCOUNTER 2024-12-27 10:34 | Outpatient (REF) | payer BC, SELFPAY ==
--- NOTE | 2024-12-27 10:00 | PAPFT_PTH ---
PATIENT: Shonna Hector LOC: [facility]#:[id number] AGE/SX: 29/F ROOM: RE12/27/[address]: KEIRA: 1995 BED: DIS: 12/27/2024 SPEC #: [id number] RECD: 12/27/24 17:25 STATUS: ESE FONTANEZ #: [id number] RUSLAN: 12/27/24 10:[address]: Kalina Guillaume DEPT: [facility] Cytology RECD BY: Marj Vidal ENTERED: 12/27/24 17:25 SP TYPE: PAPFT OTHR DR: Danyell Cheema Tissues: 1 - CX/ENDOCX FOR PAP SMEARS Procedures: PAP THIN PREP/[facility] Screening HPV DNA PROBE Comments: [id number] (HPV 16 & 18/45) (CHLAMYDIA/GC)
[2024-12-27 15:53] LABS: Abs Immature Grans 0.01 10^3/uL (0.0-0.06); HCT 41.4 % (36.0-46.0); HGB 13.7 g/dL (11.2-15.7); Immature Grans % 0.2 %; MCH 29.7 pg (27.0-33.0); MCHC 33.1 % (32.0-36.0); MCV 90 fL (80-95); MPV 10.2 fL (8.0-11.0); Platelet Count 364 10^3/uL (130-400); RBC 4.61 10^6/uL (3.93-5.22); RDW 11.7 % (11.7-14.6); RDW-SD 38.1 fL; WBC 5.52 10^3/uL (4.4-10.8)
[2024-12-27 16:25] LABS: Iron 96 ug/dL (50-170); Total Iron Binding Capacity 290 ug/dL (250-450)
[2024-12-28 14:22] LABS: Bacterial Vaginosis (BV) Negative (Negative); Candida glabrata Negative (Negative); Candida species group Positive (Negative)
[2024-12-30 11:55] LABS: Chlamydia Result Negative (Negative); GC Result Negative (Negative)
== END 2024-12-27 10:35 | disposition home or self-care (01) ==
LOC: NCHCN 10:34
PROVIDERS: PCP Registered Nurse; Visit Provider Family Medicine
DX: N92.0 Excessive and frequent menstruation with regular cycle (principal); Z12.4 Encounter for screening for malignant neoplasm of cervix
CPT/HCPCS: 81513; 87481; 87491; 87591; 87661; 88142; 83540; 83550; 85025; 87624